=== PATIENT | female | born 1975 | race African-American/Black ===

== ENCOUNTER 2019-05-28 16:50 | Emergency (ER) | payer BC ==
[2019-05-28 16:59] VITALS: BP 178/113; PULSE 95; TEMP 98.5; BMI 23.3
--- NOTE | 2019-05-28 17:04 | PDOC ---
Rapid Medical Evaluation Chief Complaint: RX Refill Time Seen by Provider: 05/28/19 16:53 Medical Evaluation: Allergies Allergy/AdvReac Type Severity Reaction Status Date / Time No Known Allergies Allergy Verified 05/28/19 16:54 05/28/19 16:54 Pt c/o: c/o mild headache, here for refill for lopressor, moved here from [place] 2 months ago and ran out of meds 3 days ago, looking for a new PCP Pt on brief exam: 173/113, 95, lcta, no edema Pt ordered for: labs, ua, cxr, ekg Pt to proceed to the ED Discharge Disposition - Diagnosis Hypertension - Referrals - Patient Instructions - Post Discharge Activity
[2019-05-28] MEDS ORDERED: METOPROLOL TARTRATE 50 MG TABLET (FP) ONE (17:14)
--- NOTE | 2019-05-28 17:21 | PDOC ---
History of Present Illness - General Chief Complaint: RX Refill Stated Complaint: REFILL ON BP MEDS Time Seen by Provider: 05/28/19 16:53 History Source: Patient Exam Limitations: Clinical Condition - History of Present Illness Initial Comments: 05/28/19 17:15 Patient with history of hypertension presented with complaint of slight intermittent headache and requests a refill of her hypertension medication. Patient requests referral to PCP as she just moved to the area and does not have any PCP and ran out of her medication. Patient on metoprolol 100 mg daily. Denies shortness of breath, dizziness, blurry vision, change in vision, nausea or vomiting. Denies chest pain, numbness or tingling sensation. Denies any other symptoms Is this a multiple visit Asthma Patient?: No Timing/Duration: intermittent Past History - Past Medical History Allergies/Adverse Reactions: Allergies Allergy/AdvReac Type Severity Reaction Status Date / Time No Known Allergies Allergy Verified 05/28/19 16:54 Home Medications: Ambulatory Orders Metoprolol Succinate [Toprol XL -] 100 mg PO DAILY 30 Days #30 tab.sr.24h COPD: No CHF: No HTN: Yes - Immunization History Immunization Up to Date: Yes - Psycho Social/Smoking Cessation Hx Smoking History: Never smoked Hx Alcohol Use: No Drug/Substance Use Hx: No Review of Systems - Review of Systems Able to Perform ROS?: Yes Is the patient limited Romansh proficient: No Constitutional: No: Chills, Fever, Malaise HEENTM: No: Symptoms Reported, See HPI, Eye Pain, Blurred Vision, Tearing, Recent change in vision, Double Vision, Cataracts, Ear Pain, Ocular Prothesis, Ear Discharge, Nose Pain, Nose Congestion, Tinnitus, Nose Bleeding, Hearing Loss , Throat Pain, Throat Swelling, Mouth Pain, Dental Problems, Difficulty Swallowing, Mouth Swelling, Other Respiratory: No: Symptoms reported, See HPI, Cough, Orthopnea, Shortness of Breath, SOB with Exertion, SOB at Rest, Stridor, Wheezing, Productive cough, Hemoptysis, Other Cardiac (ROS): No: Symptoms Reported, See HPI, Chest Pain, Edema, Irregular Heart Rate, Lightheadedness, Palpitations, Syncope, Chest Tightness, Other ABD/GI: No: Nausea, Vomiting Musculoskeletal: No: Symptoms Reported Integumentary: Yes: See HPI. No: Symptoms Reported Neurological: Yes: Symptoms reported, See HPI, Headache (intermittent mild headache). No: Numbness, Paresthesia, Pre-Existing Deficit, Seizure, Tingling, Weakness, Unsteady Gait, Ataxia, Dizziness All Other Systems: Reviewed and Negative *Physical Exam - Vital Signs Last Vital Signs Temp Pulse Resp BP Pulse Ox 98.5 F 95 H 16 178/113 H 99 05/28/19 16:55 05/28/19 16:55 05/28/19 16:55 05/28/19 16:55 05/28/19 16:55 - Physical Exam Comments: 05/28/19 17:16 GENERAL: Well developed, well nourished. Awake and alert. No acute distress. HEENT: Normocephalic, atraumatic. PERRLA, EOMI. No conjunctival pallor. Sclera are non-icteric. Moist mucous membranes. Oropharynx is clear. NECK: Supple. Full ROM. CARDIOVASCULAR: Regular rate and rhythm. No murmurs, rubs, or gallops. Distal pulses are 2+ and symmetric. PULMONARY: No evidence of respiratory distress. Lungs clear to auscultation bilaterally. No wheezing, rales or rhonchi. ABDOMINAL: Soft. Non-tender. Non-distended. No rebound or guarding. No organomegaly. Normoactive bowel sounds. MUSCULOSKELETAL Normal range of motion at all joints. SKIN: Warm and dry. Normal capillary refill. No rashes. No jaundice. NEUROLOGICAL: Alert, awake, appropriate. Gait is normal without ataxia. PSYCHIATRIC: Cooperative. Good eye contact. Appropriate mood General Appearance: Yes: Nourished, Appropriately Dressed. No: Apparent Distress Medical Decision Making - Medical Decision Making 05/28/19 17:18 Patient with history of hypertension presented with complaint of slight intermittent headache and requests a refill of her hypertension medication. Patient requests referral to PCP as she just moved to the area and does not have any PCP and ran out of her medication. Patient on metoprolol 100 mg daily. Denies shortness of breath, dizziness, blurry vision, change in vision, nausea or vomiting. Denies chest pain, numbness or tingling sensation. Denies any other symptoms Clinical exam unremarkable with normal cardio exam and normal neuro exam. Patient with elevated blood pressure which is explained by her compliance with her blood pressure medication for 5 days now. Metoprolol 100 mg p.o. given now. Patient asymptomatic and stable for discharge with refill for metoprolol with PCP follow-up. Patient advised to keep blood pressure log and follow-up with PCP soon as possible. Patient voiced understanding stable for discharge Discharge - Discharge Information Problems reviewed: Yes Clinical Impression/Diagnosis: Encounter for medication refill Hypertension Qualifiers: Hypertension type: essential hypertension Qualified Code(s): I10 - Essential ( primary) hypertension Condition: Stable Disposition: HOME - Admission No - Additional Discharge Information Prescriptions: Metoprolol Succinate [Toprol XL -] 100 mg PO DAILY 30 Days #30 tab.sr.24h - Follow up/Referral Referrals: Mary Lou Funez MD [Staff Physician] - - Patient Discharge Instructions Patient Printed Discharge Instructions: Treatments for High Blood Pressure: More Than Just Taking a Pill, Lifestyle Habits May Lower Risk of Hypertension in Women Additional Instructions: Take prescribed blood pressure medication as prescribed. Keep blood pressure log and follow-up referred to primary care to establish primary care. Come back to the emergency room if worsening headache with vomiting, dizziness, chest pain, lightheadedness - Post Discharge Activity
== END 2019-05-28 17:39 | disposition home or self-care (01) ==
LOC: JERFT 16:50
DX: I10 Essential (primary) hypertension (principal); Z76.0 Encounter for issue of repeat prescription
CPT/HCPCS: 99281-25